=== PATIENT | female | born 1970 | race Caucasian/White ===

== ENCOUNTER 2018-09-02 05:58 | Day surgery (SDC) | payer OTHER, BC ==
[2018-09-02] MEDS ORDERED: MIDAZOLAM 1 MG/ML 2 ML INJ ×2 (08:43→08:44)
[2018-09-02] MEDS ORDERED: FENTAnyl 50 MCG/ML VIAL (08:44)
== END 2018-09-02 15:03 | disposition home or self-care (01) ==
LOC: GIL 05:58
DX: K64.8 Other hemorrhoids (principal)
CPT/HCPCS: 45378; 84703